=== PATIENT | female | born 1955 | race Caucasian/White ===

== ENCOUNTER 2023-05-15 17:34 | Emergency (ER) | payer SELFPAY ==
[2023-05-15 17:40] VITALS: BP 150/80; PULSE 76; RESP 20; TEMP 36.7; O2SAT 98; BMI 27.4
--- NOTE | 2023-05-15 17:42 | XR_ITS ---
The [address] [address] Patient Name: KAREN ALEMAN MRN: [id number] date: 1955 Sex: F Assigned Patient Location: ED.MAIN Current Patient Location: ER Accession/Order Number: [id number] Exam Date: 05/15/2023 18:18 Report Date: 05/15/2023 18:51 At the request of: DOUG VERMA Procedure: XR shoulder LT min 2V EXAM: XR shoulder LT min 2V HISTORY: pain, fall COMPARISON: None. TECHNIQUE: 3 views of the left shoulder. FINDINGS: Bones: No acute fracture or aggressive appearing bony lesion. Joints: Normal alignment. No effusion. 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 Soft tissues: Unremarkable. XR/XR shoulder LT min 2V IMPRESSION: No evidence of fracture or dislocation. Electronically authenticated by: JAZLYN CHO Date: 05/15/2023 18:51
--- NOTE | 2023-05-15 17:42 | ECG_ITS ---
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
--- NOTE | 2023-05-15 17:42 | CT_ITS ---
The [address] [address] Patient Name: KAREN ALEMAN MRN: [id number] date: 1955 Sex: F Assigned Patient Location: ER Current Patient Location: Accession/Order Number: [id number] Exam Date: 05/15/2023 18:11 Report Date: 05/15/2023 19:05 At the request of: DOUG VERMA Procedure: CT cervical spine wo con EXAM: CT cervical spine wo con COMPARISON: None available. CLINICAL INDICATION: pain, fall TECHNIQUE: Multiplanar CT images of the cervical spine without contrast. Dose reduction techniques were achieved by using automated exposure control and/or adjustment of mA and/or kV according to patient size and/or use of iterative reconstruction technique. FINDINGS: Osteopenia. No CT evidence of acute osseous abnormality of the cervical spine. No prevertebral soft tissue swelling. No significant spondylolisthesis. Moderate degenerative disc disease at C5-C6. Severe facet arthropathy at C3-C4 on the right and C5-C6 on the left. No significant spinal canal stenosis. Right foraminal narrowing at C3-C4. Acute nondisplaced fracture of the left first rib. No significant left pneumothorax seen. Question acute nondisplaced compression fracture of the right upper T1 vertebral body with trace height loss. CT/CT cervical spine wo con IMPRESSION: Acute nondisplaced fracture of the left first rib. No significant left pneumothorax seen. Question acute nondisplaced compression fracture of the right upper T1 vertebral body with trace height loss. No CT evidence of acute osseous abnormality of the cervical spine. Osteopenia. Degenerative changes detailed above. Electronically authenticated by: FERNANDEZ PAYNE Date: 05/15/2023 19:05
--- NOTE | 2023-05-15 17:42 | CT_ITS ---
The [address] [address] Patient Name: KAREN ALEMAN MRN: [id number] date: 1955 Sex: F Assigned Patient Location: ER Current Patient Location: ER Accession/Order Number: [id number] Exam Date: 05/15/2023 18:11 Report Date: 05/15/2023 20:21 At the request of: DOUG VERMA Procedure: CT head/brain wo con CT SCAN OF THE HEAD WITHOUT CONTRAST, 05/15/2023 6:11 PM EDT: COMPARISON: None CLINICAL HISTORY: AMS. Patient fell a couple days ago. TECHNIQUE: 3 mm axial images performed through the head without contrast. 3 mm sagittal and coronal MPR reconstructions performed. Dose reduction techniques were achieved by using automated exposure control and/or adjustment of mA and/or kV according to patient size and/or use of iterative reconstruction technique. FINDINGS: Age-related cerebral and cerebellar atrophy with associated ventricular prominence. Nonspecific periventricular white matter low attenuation, likely a sequela of small vessel disease. No acute hemorrhage, mass effect, or midline shift. Visualized paranasal sinuses, mastoid air cells, and bony structures are unremarkable. CT/CT head/brain wo con IMPRESSION: 1. No acute intracranial abnormality identified. Please note, CT is insensitive to early ischemia and if there is further clinical concern, MRI or CT angiography is recommended. 2. Age-related atrophy with associated ventricular prominence and periventricular white matter small vessel disease. Electronically authenticated by: Jennifer MITCHELL Date: 05/15/2023 20:21
[2023-05-15 18:06] VITALS: PULSE 76; RESP 21
[2023-05-15 18:07] VITALS: PULSE 77; RESP 27; O2SAT 98
[2023-05-15 18:08] LABS: Amphetamine Screen Urine NEGATIVE (NEGATIVE); Barbiturates Screen Urine NEGATIVE (NEGATIVE); Benzodiazepines Screen Urine NEGATIVE (NEGATIVE); Buprenorphine Screen Urine NEGATIVE (NEGATIVE); Cannabinoid Screen Urine NEGATIVE (NEGATIVE); Cocaine Screen Urine NEGATIVE (NEGATIVE); Methadone Screen Urine NEGATIVE (NEGATIVE); Methamphetamines Screen Urine NEGATIVE (NEGATIVE); Opiate Screen Urine NEGATIVE (NEGATIVE); Oxycodone Screen Urine NEGATIVE (NEGATIVE); Phencyclidine Screen Urine NEGATIVE (NEGATIVE); Tricyclic Antidepressant Urine NEGATIVE (NEGATIVE)
[2023-05-15 18:15] LABS: Basophils Absolute Auto 0.1 10^3/uL (0.0-0.1); Basophils Percent Auto 0.3 % (0.2-2.0); Eosinophils Absolute Auto 0.3 10^3/uL (0.0-0.7); Hematocrit 48.6 % (36.0-48.0); Hemoglobin 15.9 g/dL (12.0-16.0); Immature Granulocytes Abs Auto 0.06 10^3/uL (0.00-0.03); Immature Granulocytes Pct Auto 0.4 % (0.0-0.5); Lymphocytes Absolute Auto 5.3 10^3/uL (1.2-3.8); Lymphocytes Percent Auto 35.7 % (20.5-60.0); Mean Corpuscular HGB Conc 32.7 g/dL (29.9-35.2); Mean Corpuscular Hemoglobin 30.9 pg (26.7-34.0); Mean Corpuscular Volume 94.4 fL (81.0-99.0); Mean Platelet Volume 11.4 fL (9.5-13.5); Monocytes Absolute Auto 0.9 10^3/uL (0.3-0.8); Monocytes Percent Auto 6.3 % (1.7-12.0); Neutrophils Absolute Auto 8.3 10^3/uL (1.4-6.5); Neutrophils Percent Auto 55.3 % (43.0-75.0); Platelet Count 307 10^3/uL (150-450); Red Blood Count 5.15 10^6/uL (4.20-5.40); Red Cell Distribution Width 13.9 % (11.0-15.0)
[2023-05-15 18:16] LABS: Anion Gap 14.7; BUN Creatinine Ratio 27.5; Calcium 9.5 mg/dL (8.5-10.1); Carbon Dioxide 29.3 mmol/L (21.0-32.0); Chloride 100 mmol/L (98-107); Estimated GFR (African America >60 (>=60); Estimated GFR (Non-African Ame >60 (>=60); Glucose 176 mg/dL (74-106); Sodium 140 mmol/L (136-145)
[2023-05-15 18:24] LABS: Ethanol <3 mg/dL
--- NOTE | 2023-05-15 18:53 | ED_ITS ---
HPI - Medical Clearance General Chief complaint: Medical Clearance Stated complaint: MEDICAL CLEARANCE Time Seen by Provider: 05/15/23 17:38 Source: patient Mode of arrival: law enforcement Limitations: no limitations History of Present Illness HPI Narrative: 67-year-old female presents to the emergency department for medical clearance for alf. Patient was discharged earlier in the day with trespassing in a bar after she hugged a button decorating machine operator and would let him go. She showed back up to the bar playing loud music and yelling for the button decorating machine operator and was charged with menacing stalking and trespassing. She is brought by PD for medical clearance. Patient reports that she fell 2 days ago and hit her head. She also reports some left shoulder pain from the fall. She is otherwise been her baseline health. Reports she takes no medications. Related Information Home Medications Medication Instructions Recorded Confirmed aripiprazole 5 mg tablet 5 mg PO DAILY 05/15/23 05/15/23 empagliflozin 10 mg tablet 10 mg PO DAILY 05/15/23 05/15/23 (Jardiance) hydroxyzine HCl 25 mg tablet 25 mg PO BID PRN anxiety 05/15/23 05/15/23 lumateperone 42 mg capsule 42 mg PO DAILY 05/15/23 05/15/23 (Caplyta) oxcarbazepine 300 mg tablet 300 mg PO BID 05/15/23 05/15/23 paliperidone 6 mg tablet,extended 6 mg PO Q24H 05/15/23 05/15/23 release 24 hr trazodone 50 mg tablet 50 mg PO BEDTIME 05/15/23 05/15/23 Allergies Allergy/AdvReac Type Severity Reaction Status Date / Time No Known Drug Allergies Allergy Verified 05/15/23 17:39 Review of Systems ROS Status of ROS 10 or more systems reviewed and unremarkable except as noted in history and below Exam Narrative Exam Narrative: VITALS: I have reviewed the triage vital signs. GENERAL: Well developed, well appearing adult female in no acute distress. NEURO: Alert and oriented x4. Moves all extremities. Face is symmetric and expressive. EYES: PERRL. No scleral icterus or conjunctival injection. No discharge. HENT: Normocephalic, atraumatic. Hearing is grossly intact. Nares grossly patent and without discharge. Mucous membranes moist. NECK: No JVD. Patient moves neck without restriction. CARDIO: Rhythm regular. Normal rate. No murmur, rub, or gallop. Pulses equal bilaterally in the upper and lower extremity. No lower extremity edema. PULM: Lungs clear to auscultation in all pool. No wheezes, rales, or rhonchi. No conversational dyspnea. No splinting, stridor, or accessory muscle use. GI/: Abdomen is soft and non-tender. Normoactive bowel sounds. EXTREMITIES: Symmetric muscle bulk. No joint swelling. No clubbing, cyanosis, or deformity. SKIN: Warm and dry. Normal turgor. No rash or lesions appreciated. PSYCH: Bizarre affect. Constitutional Vital Signs, click to edit/add: Last Vital Signs Temp 98.1 F 05/15/23 17:40 Pulse 76 05/15/23 17:40 Resp 20 05/15/23 17:40 BP 150/80 H 05/15/23 17:40 Pulse Ox 98 05/15/23 18:07 O2 Del Method Room Air 05/15/23 18:07 Course Vital Signs Vital signs: Vital Signs Temperature 98.1 F 05/15/23 17:40 Pulse Rate 76 05/15/23 17:40 Respiratory Rate 20 05/15/23 17:40 Blood Pressure 150/80 H 05/15/23 17:40 Pulse Oximetry 98 05/15/23 17:40 Oxygen Delivery Method Room Air 05/15/23 17:40 Temperature 98.1 F 05/15/23 17:40 Pulse Rate 76 05/15/23 17:40 Respiratory Rate 20 05/15/23 17:40 Blood Pressure 150/80 H 05/15/23 17:40 Pulse Oximetry 98 05/15/23 18:07 Oxygen Delivery Method Room Air 05/15/23 18:07 MDM - Medical Clearance MDM Narrative Medical decision making narrative: 67-year-old female to the emergency department for medical clearance. Vital stable, the patient is afebrile. Basic labs ordered. Given her recent fall and bizarre behavior reported today by PD will order CT head, C-spine. Order x-ray left shoulder per her discomfort. Patient agrees with this plan. Lab work reviewed and noted. No major abnormalities. Care was signed out to Dr. Pond with results of CT imaging, urinalysis pending. If these are within normal limits she may be cleared for alf. Medical Records Attestation: I reviewed the patient's medical records. Lab Data Attestation: I reviewed the patient's lab results. Labs: Lab Results 05/15/23 05/15/23 Range/Units 17:50 18:00 WBC 15.0 H (4.0-11.0) 10^3/uL RBC 5.15 (4.20-5.40) 10^6/uL Hgb 15.9 (12.0-16.0) g/dL Hct 48.6 H (36.0-48.0) % MCV 94.4 (81.0-99.0) fL MCH 30.9 (26.7-34.0) pg MCHC 32.7 (29.9-35.2) g/dL RDW 13.9 (11.0-15.0) % Plt Count 307 (150-450) 10^3/uL MPV 11.4 (9.5-13.5) fL Neut % (Auto) 55.3 (43.0-75.0) % Lymph % (Auto) 35.7 (20.5-60.0) % Ritchie % (Auto) 6.3 (1.7-12.0) % Eos % (Auto) 2.0 (0.9-7.0) % Baso % (Auto) 0.3 (0.2-2.0) % Neut # (Auto) 8.3 H (1.4-6.5) 10^3/uL Lymph # (Auto) 5.3 H (1.2-3.8) 10^3/uL Ritchie # (Auto) 0.9 H (0.3-0.8) 10^3/uL Eos # (Auto) 0.3 (0.0-0.7) 10^3/uL Baso # (Auto) 0.1 (0.0-0.1) 10^3/uL Abs Immat Gran (auto) 0.06 H (0.00-0.03) 10^3/uL Imm/Tot Granulo (auto) 0.4 (0.0-0.5) % Sodium 140 (136-145) mmol/L Potassium 4.0 (3.5-5.1) mmol/L Chloride 100 (98-107) mmol/L Carbon Dioxide 29.3 (21.0-32.0) mmol/L Anion Gap 14.7 BUN 22.0 H (7.0-18.0) mg/dL Creatinine 0.80 (0.55-1.02) mg/dL Est GFR ( Amer) >60 (>=60) Est GFR (Non-Af Amer) >60 (>=60) BUN/Creatinine Ratio 27.5 Glucose 176 H (74-106) mg/dL Calcium 9.5 (8.5-10.1) mg/dL Urine Opiates Screen Negative (NEGATIVE) Ur Buprenorphine Scrn Negative (NEGATIVE) Ur Oxycodone Screen Negative (NEGATIVE) Urine Methadone Screen Negative (NEGATIVE) Ur Propoxyphene Screen Negative (NEGATIVE) Ur Barbiturates Screen Negative (NEGATIVE) U Tricyclic Antidepress Negative (NEGATIVE) Ur Phencyclidine Scrn Negative (NEGATIVE) Ur Amphetamines Screen Negative (NEGATIVE) U Methamphetamines Scrn Negative (NEGATIVE) U Benzodiazepines Scrn Negative (NEGATIVE) Urine Cocaine Screen Negative (NEGATIVE) U Cannabinoids Screen Negative (NEGATIVE) Ethanol Quant <3 mg/dL ECG Data Attestation: I personally reviewed and interpreted this ECG as follows: (NSR at 69. Normal QTc. No STEMI. ) Discharge Plan Discharge Chief Complaint: Medical Clearance Clinical Impression: Encounter for medical screening examination, Abnormal behavior Prescriptions / Home Meds: No Action aripiprazole 5 mg tablet 5 mg PO DAILY Jardiance 10 mg tablet 10 mg PO DAILY hydroxyzine HCl 25 mg tablet 25 mg PO BID PRN (Reason: anxiety) Caplyta 42 mg capsule 42 mg PO DAILY oxcarbazepine 300 mg tablet 300 mg PO BID paliperidone 6 mg tablet extended release 24hr 6 mg PO Q24H trazodone 50 mg tablet 50 mg PO BEDTIME Referrals: Physician,Non-Staff, MD [Primary Care Provider] - 1 week
[2023-05-15 19:12] LABS: Bilirubin Urine NEGATIVE (NEGATIVE); Blood Urine NEGATIVE (NEGATIVE); Clarity Urine CLEAR (CLEAR); Color Urine YELLOW (YELLOW); Glucose Urine UA >=1000 mg/dL (NEGATIVE); Ketones Urine TRACE mg/dL (NEGATIVE); Leukocyte Esterase Urine NEGATIVE (NEGATIVE); Nitrite Urine NEGATIVE (NEGATIVE); Protein Urine NEGATIVE (NEG/TRACE); Specific Gravity Urine >=1.030 (1.005-1.025); Urobilinogen Urine 0.2 EU/dL (0.2-1.0)
[2023-05-15 19:13] LABS: Urine Microscopic Indicated NO
--- NOTE | 2023-05-15 19:38 | CT_ITS ---
The [address] [address] Patient Name: KAREN ALEMAN MRN: [id number] date: 1955 Sex: F Assigned Patient Location: ER Current Patient Location: ED.MAIN Accession/Order Number: [id number] Exam Date: 05/15/2023 19:50 Report Date: 05/15/2023 21:24 At the request of: CHIKA CHARLTON Procedure: CT thoracic spine wo con EXAM: CT thoracic spine wo con HISTORY: ? Compression fracture T1 COMPARISON: CT cervical spine 05/15/2023. TECHNIQUE: Unenhanced helical CT was performed of the thoracic spine. Coronal and sagittal reconstructions were performed. FINDINGS: There is minimal loss of height at T1 as noted on cervical spine CT with mild concavity of the superior endplate. This is favored to be chronic in nature. There is mild increased kyphosis of the upper thoracic spine. There is mild multilevel disc space narrowing and anterior osteophytic spurring especially at T3-T4 consistent with degenerative changes. No acute fracture or subluxation. There is no significant spinal canal or neural foraminal stenosis. There is borderline cardiomegaly. The main pulmonary artery is dilated at 3 cm suspicious for pulmonary hypertension. As noted on the cervical spine CT there is an acute nondisplaced fracture of the left first posterior rib. CT/CT thoracic spine wo con IMPRESSION: 1. No definite acute fracture or subluxation. 2. Redemonstration of mild loss of height at T1 with concavity of the superior endplate. This is most likely chronic in nature. 3. Redemonstration of a nondisplaced fracture of the left first posterior rib. 4. Degenerative changes as described above. 5. Mild increased thoracic kyphosis. 6. Borderline cardiomegaly and dilated main pulmonary artery which may be secondary to pulmonary hypertension. Electronically authenticated by: ALL HERBERT Date: 05/15/2023 21:24
[2023-05-15 20:56] VITALS: BP 170/71
== END 2023-05-15 21:32 ==
PROVIDERS: Student in an Organized Health Care Education/Training Program; Emergency Provider Internal Medicine
DX: S22.32XA Fracture of one rib, left side, initial encounter for closed fracture (principal); F99 Mental disorder, not otherwise specified; S22.010A Wedge compression fracture of first thoracic vertebra, initial encounter for closed fracture; W19.XXXA Unspecified fall, initial encounter; Z79.899 Other long term (current) drug therapy
CPT/HCPCS: 36415; 70450; 72125; 72128; 73030; 80048; 80307; 80320; 81003; 85025; 93005; 99285

== ENCOUNTER 2023-11-05 13:34 | Emergency (ER) | payer SELFPAY ==
[2023-11-05] VITALS (13 sets, daily range): BP systolic 130–185; BP diastolic 64–105; PULSE 72–89; RESP 16–41; TEMP 36.6; O2SAT 95; BMI 29.9
--- NOTE | 2023-11-05 13:47 | PC.NURSE ---
pt reports having a cysts in belly button and was instructed to get a US for this but pt reports does not have insurance or insurance will not pay for this so she is unable to get this test done out pt.
--- NOTE | 2023-11-05 13:52 | ECG_ITS ---
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
--- NOTE | 2023-11-05 13:52 | XR_ITS ---
The [address] [address] Patient Name: KAREN ALEMAN MRN: [id number] date: 1955 Sex: F Assigned Patient Location: ER Current Patient Location: ER Accession/Order Number: [id number] Exam Date: 11/05/2023 14:30 Report Date: 11/05/2023 14:41 At the request of: MECHELLE MIGUEL Procedure: XR chest 1V EXAM: XR chest 1V HISTORY: Weakness COMPARISON: None. TECHNIQUE: Chest semiupright portable one view FINDINGS: Small to moderate-sized left effusion with left lower lobe and lingular airspace disease from atelectasis versus pneumonia. Mild left upper lobe atelectasis. Mild atelectasis at the right lung base. There is a calcified right lower lobe granuloma. Pulmonary vasculature within normal limits. Heart size is suboptimally evaluated given opacified left lower chest that appears to be mildly enlarged. XR/XR chest 1V IMPRESSION: 1. Yxgop-ng-mafapuhg size left effusion with left mid to lower lung airspace disease from atelectasis versus pneumonia. No prior comparison studies. Recommend follow-up to resolution. Electronically authenticated by: EARNEST WARE Date: 11/05/2023 14:41
--- NOTE | 2023-11-05 13:52 | CT_ITS ---
The [address] [address] Patient Name: KAREN ALEMAN MRN: [id number] date: 1955 Sex: F Assigned Patient Location: ER Current Patient Location: ER Accession/Order Number: [id number] Exam Date: 11/05/2023 15:15 Report Date: 11/05/2023 16:01 At the request of: MECHELLE MIGUEL Procedure: CT abdomen pelvis w con EXAM: CT abdomen pelvis w con HISTORY: abdominal pain COMPARISON: None TECHNIQUE: CT abdomen and CT pelvis studies were performed with the use of intravenous contrast. Multiple axial images were obtained. Reformatted coronal and sagittal images were obtained and reviewed. FINDINGS: Small right pleural effusion with small to moderate-sized left pleural effusion. Calcified lymph nodes in the right hilar region likely related to granulomatous changes. Calcified granuloma in the right lower lung field. Mild atelectatic, fibrotic or infiltrative changes in the left lower lung field with mild pleural thickening. Views of the liver demonstrate multiple variable sized areas of decreased attenuation there are not felt to be cystic. Diffuse hepatic metastatic disease is suggested. A few of the largest areas measure near 4 cm. Views of the spleen demonstrate a 1.2 cm area of decreased attenuation which is not felt to be simple cystic in nature, metastatic lesion is considered. Gallbladder appears grossly unremarkable. Ovlb-qh-plkndnow atrophy of the pancreas without focal mass or ductal dilatation. Adrenal glands appear grossly unremarkable. Stomach appears grossly unremarkable. Bowel loops appear grossly unremarkable. Atherosclerotic calcifications within portions of the thoracic aorta. No evidence of aneurysm. Npch-kq-zmkbqlgg retroperitoneal adenopathy in the periaortic and pericaval regions which may be malignant. Mildly enlarged left pericardial fat pad lymph node which may be malignant. Densities within the omental region anteriorly suspect for omental metastatic disease/peritoneal seeding. No obvious renal mass or evidence of obstructive uropathy. Large amount of free intraperitoneal fluid in the abdomen which may represent malignant ascites. Somewhat thickened appearance of the diaphragm bilaterally may be artifactually created, one involving difficult to exclude entirely. Pelvis: Moderate to large amount of free intraperitoneal fluid which may be malignant. Bladder appears grossly unremarkable. There may be ill-defined endometrial prominence of the uterus, uterine neoplasm is not excluded. Artifact versus mild prominence of the cervical region. Neoplasm not excluded. Small 1.2 cm decreased attenuation left adnexal region most likely representing cyst, unusual in a patient of this age though other possibility would be less likely. Given the above findings, follow-up ultrasound study of pelvis with transabdominal and transvaginal imaging may be considered for further evaluation. Perirectal fat planes appear grossly intact. Bowel loops appear grossly unremarkable. Atherosclerotic calcifications within portions of the iliofemoral arteries. No evidence of aneurysm. Omental metastatic seeding suggested at the orifice of a small umbilical hernia, no evidence of associated bowel content. Mild bilateral iliofemoral adenopathy which may well be malignant. Moderate degenerative changes in the lumbar spine with mild degenerative changes in the dorsal spine. Mild generalized subcutaneous edema. CT/CT abdomen pelvis w con IMPRESSION: CT abdomen and CT pelvis studies demonstrate findings compatible with diffuse hepatic metastatic disease. Likely metastatic lesion in the spleen. Moderate to marked free intraperitoneal fluid in the abdomen and pelvis. Malignant adenopathy is considered Findings compatible with omental/peritoneal neoplastic involvement as described. Adenopathy which may be malignant as noted. Artifact versus possible malignant involvement of the diaphragm. Questionable mild ill-defined prominence of the endometrial region of the uterus. Likely small cyst in the left adnexal region unusual in a patient of this age no other possibility would be less likely. Possible endometrial prominence. Given these findings, follow-up ultrasound study of pelvis with transabdominal and transvaginal imaging may be considered for further evaluation. Electronically authenticated by: REAL MARTINI Date: 11/05/2023 16:01
--- NOTE | 2023-11-05 13:54 | ED.GENADUL1 ---
HPI - General Adult General Chief complaint: Nausea/Vomiting/Diarrhea Stated complaint: ABD PAIN Time Seen by Provider: 11/05/23 13:47 Source: patient Mode of arrival: ambulance Limitations: no limitations History of Present Illness HPI narrative: Patient is a 68-year-old female brought in by ambulance for the evaluation of nausea and diarrhea for the last several months. Patient is a very poor historian. She states that she came to the ER today because she continues to have diarrhea and abdominal distention. Patient apparently has seen her provider for this in [place] at [facility], she states that she was due to have imaging done of her abdomen but does not have insurance.Patient denies fevers, vomiting. She denies any pain in the abdomen. She has had no urinary symptoms. No medications taken prior to arrival today. Related Data Home Medications Medication Instructions Recorded Confirmed aripiprazole 5 mg tablet 5 mg PO DAILY 05/15/23 05/15/23 empagliflozin 10 mg tablet 10 mg PO DAILY 05/15/23 05/15/23 (Jardiance) hydroxyzine HCl 25 mg tablet 25 mg PO BID PRN anxiety 05/15/23 05/15/23 lumateperone 42 mg capsule 42 mg PO DAILY 05/15/23 05/15/23 (Caplyta) oxcarbazepine 300 mg tablet 300 mg PO BID 05/15/23 05/15/23 paliperidone 6 mg tablet,extended 6 mg PO Q24H 05/15/23 05/15/23 release 24 hr trazodone 50 mg tablet 50 mg PO BEDTIME 05/15/23 05/15/23 Previous Rx's Medication Instructions Recorded hyoscyamine sulfate 0.125 mg 0.125 mg PO Q6H PRN abdominal pain 11/05/23 tablet (Levsin) #12 tabs ondansetron 4 mg disintegrating 4 mg PO Q6H PRN nausea and 11/05/23 tablet vomiting #12 tabs Allergies Allergy/AdvReac Type Severity Reaction Status Date / Time No Known Drug Allergies Allergy Verified 05/15/23 17:39 Review of Systems ROS Constitutional Denies: fever or chills Ears, nose, mouth, and throat Denies: throat pain or nasal congestion Cardiovascular Denies: chest pain Respiratory Denies: shortness of breath or cough Gastrointestinal Reports: nausea and diarrhea; Denies: abdominal pain or vomiting Genitourinary Denies: painful urination Musculoskeletal Reports: back pain; Denies: neck pain Integumentary/Breast Denies: rash Neurological Denies: headache Hematologic/Lymphatic Denies: easy bruising [facility] Social History Smoking status: Light tobacco smoker Exam Narrative Exam Narrative: Gen.: Awake, alert, in no distress, Patient lying on her side in no distress Head: Normocephalic, atraumatic ENT: Moist mucous membranes Respiratory: No respiratory distress, lungs clear bilaterally Cardio: Regular rate and rhythm Gastrointestinal: Abdomen is soft, Distended with palpable lump at the umbilicus. No erythema or induration of the abdominal wall. Nontender to palpation. Extremities: Moves extremities equally, no injuries noted Psych: Normal mood and affect Neuro: No focal neuro deficit Skin: Warm, dry, intact Constitutional Vital Signs, click to edit/add: Last Vital Signs Temp 97.8 F 11/05/23 13:36 Pulse 75 11/05/23 15:40 Resp 16 11/05/23 15:40 BP 130/64 11/05/23 15:37 Pulse Ox 95 11/05/23 13:36 O2 Del Method Room Air 11/05/23 13:46 Course Vital Signs Vital signs: Vital Signs Temperature 97.8 F 11/05/23 13:36 Pulse Rate 82 11/05/23 13:36 Respiratory Rate 24 11/05/23 13:36 Blood Pressure 185/105 H 11/05/23 13:36 Pulse Oximetry 95 11/05/23 13:36 Oxygen Delivery Method Room Air 11/05/23 13:36 Temperature 97.8 F 11/05/23 13:36 Pulse Rate 75 11/05/23 15:40 Respiratory Rate 16 11/05/23 15:40 Blood Pressure 130/64 11/05/23 15:37 Pulse Oximetry 95 11/05/23 13:36 Oxygen Delivery Method Room Air 11/05/23 13:46 Medical Decision Making [facility] Narrative Medical decision making narrative: Patient was medicated with Zofran, Levsin, IV fluids. Lab studies show leukocytosis, chest x-ray with pleural effusion, patient has no cough, congestion, fevers. Blood cultures were ordered based on sepsis protocol. Lactic acid is mildly elevated. Patient with globally elevated LFTs. CT of the abdomen and pelvis shows metastatic disease throughout the abdomen. I discussed the case with on-call oncologist, Dr. Emanuel Who is in agreement with evaluating the patient as a consult, either tomorrow at 3:45 PM or as an inpatient if the patient is unable to be discharged home. She has stable vital signs in the ER, had no episodes of emesis in the ER and is continuously asking for something to eat. I discussed the results with the patient's daughter Kinga over the phone and she has no preference, she states that the patient would like to be discharged home and follow-up tomorrow, she is okay with that. Patient's results were discussed with her by Dr. Myers at the bedside. Patient prefers to be discharged home. She can return to the emergency department at any time if symptoms change or worsen. Medical Records Medical records reviewed: Yes I reviewed the patient's medical records Lab Data Lab results reviewed: Yes I reviewed the patient's lab results Labs: Lab Results 11/05/23 Range/Units 14:28 WBC 18.4 H (4.0-11.0) 10^3/uL RBC 5.35 (4.20-5.40) 10^6/uL Hgb 16.7 H (12.0-16.0) g/dL Hct 51.9 H (36.0-48.0) % MCV 97.0 (81.0-99.0) fL MCH 31.2 (26.7-34.0) pg MCHC 32.2 (29.9-35.2) g/dL RDW 15.9 H (11.0-15.0) % Plt Count 321 (150-450) 10^3/uL MPV 11.3 (9.5-13.5) fL Neut % (Auto) 74.2 (43.0-75.0) % Lymph % (Auto) 13.8 L (20.5-60.0) % Forest % (Auto) 6.6 (1.7-12.0) % Eos % (Auto) 4.4 (0.9-7.0) % Baso % (Auto) 0.5 (0.2-2.0) % Neut # (Auto) 13.6 H (1.4-6.5) 10^3/uL Lymph # (Auto) 2.6 (1.2-3.8) 10^3/uL Forest # (Auto) 1.2 H (0.3-0.8) 10^3/uL Eos # (Auto) 0.8 H (0.0-0.7) 10^3/uL Baso # (Auto) 0.1 (0.0-0.1) 10^3/uL Abs Immat Gran (auto) 0.10 H (0.00-0.03) 10^3/uL Imm/Tot Granulo (auto) 0.5 (0.0-0.5) % Sodium 137 (136-145) mmol/L Potassium 4.2 (3.5-5.1) mmol/L Chloride 98 (98-107) mmol/L Carbon Dioxide 32.0 (21.0-32.0) mmol/L Anion Gap 11.2 BUN 14.0 (7.0-18.0) mg/dL Creatinine 0.73 (0.55-1.02) mg/dL Est GFR ( Amer) >60 (>=60) Est GFR (Non-Af Amer) >60 (>=60) BUN/Creatinine Ratio 19.2 Glucose 190 H (74-106) mg/dL Lactate 2.2 H* (0.4-2.0) mmol/L Calcium 9.5 (8.5-10.1) mg/dL Total Bilirubin 2.9 H (0.2-1.0) mg/dL AST 110 H (15-37) U/L ALT 44 (14-59) U/L Alkaline Phosphatase 2049 H (46-116) U/L Troponin I High Sens 8.4 (4.0-51.3) pg/mL Total Protein 8.5 H (6.4-8.2) g/dL Albumin 3.1 L (3.4-5.0) g/dL Globulin 5.4 g/dL Albumin/Globulin Ratio 0.6 Lipase 21.0 (16.0-77.0) U/L Imaging Data Chest x-ray: Radiologist's impression: ITS Impressions Abdomen/Pelvis CT 11/05/23 13:52 IMPRESSION: CT abdomen and CT pelvis studies demonstrate findings compatible with diffuse hepatic metastatic disease. Likely metastatic lesion in the spleen. Moderate to marked free intraperitoneal fluid in the abdomen and pelvis. Malignant adenopathy is considered Findings compatible with omental/peritoneal neoplastic involvement as described. Adenopathy which may be malignant as noted. Artifact versus possible malignant involvement of the diaphragm. Questionable mild ill-defined prominence of the endometrial region of the uterus. Likely small cyst in the left adnexal region unusual in a patient of this age no other possibility would be less likely. Possible endometrial prominence. Given these findings, follow-up ultrasound study of pelvis with transabdominal and transvaginal imaging may be considered for further evaluation. Electronically authenticated by: REAL MARTINI Date: 11/05/2023 16:01 Chest X-Ray 11/05/23 13:52 IMPRESSION: 1. [id number] size left effusion with left mid to lower lung airspace disease from atelectasis versus pneumonia. No prior comparison studies. Recommend follow-up to resolution. Electronically authenticated by: EARNEST WARE Date: 11/05/2023 14:41 ECG Data Attestation: I personally reviewed and interpreted this ECG as follows: (Normal sinus rhythm at a rate of 82 with occasional PVCs, no acute ST elevation or ectopy. EKG reviewed by attending physician.) Discharge Plan Discharge Chief Complaint: Nausea/Vomiting/Diarrhea Clinical Impression: Diarrhea, Metastatic cancer Patient Disposition: Home, Self-Care Time of Disposition Decision: 16:32 Condition: Good Prescriptions / Home Meds: New hyoscyamine sulfate [Levsin] 0.125 mg tablet 0.125 mg PO Q6H PRN (Reason: abdominal pain) Qty: 12 0RF ondansetron 4 mg tablet,disintegrating 4 mg PO Q6H PRN (Reason: nausea and vomiting) Qty: 12 0RF No Action aripiprazole 5 mg tablet 5 mg PO DAILY Jardiance 10 mg tablet 10 mg PO DAILY hydroxyzine HCl 25 mg tablet 25 mg PO BID PRN (Reason: anxiety) Caplyta 42 mg capsule 42 mg PO DAILY oxcarbazepine 300 mg tablet 300 mg PO BID paliperidone 6 mg tablet extended release 24hr 6 mg PO Q24H trazodone 50 mg tablet 50 mg PO BEDTIME Instructions: Acute Diarrhea (ED) Additional Instructions: Follow up tomorrow with Dr. Emanuel's office at 3:45pm Stand Alone Forms: Portal Instructions Referrals: Marleny Emanuel MD [Physician] - 11/06/23 3:45 pm Physician,Non-Staff, [Primary Care Provider] - 1 week
[2023-11-05] MEDS: HYOSCYAMINE SULFATE 0.125 MG TAB.SUBL SL (14:23)
[2023-11-05] MEDS: 0.9 % SODIUM CHLORIDE 1,000 ML 100 ML IV (14:24)
[2023-11-05] MEDS: ONDANSETRON PF 4 MG/2 ML VIAL IV (14:24)
[2023-11-05 14:40] LABS: Basophils Absolute Auto 0.1 10^3/uL (0.0-0.1); Basophils Percent Auto 0.5 % (0.2-2.0); Eosinophils Absolute Auto 0.8 10^3/uL (0.0-0.7); Eosinophils Percent Auto 4.4 % (0.9-7.0); Hematocrit 51.9 % (36.0-48.0); Hemoglobin 16.7 g/dL (12.0-16.0); Immature Granulocytes Pct Auto 0.5 % (0.0-0.5); Lymphocytes Absolute Auto 2.6 10^3/uL (1.2-3.8); Lymphocytes Percent Auto 13.8 % (20.5-60.0); Mean Corpuscular HGB Conc 32.2 g/dL (29.9-35.2); Mean Corpuscular Hemoglobin 31.2 pg (26.7-34.0); Mean Platelet Volume 11.3 fL (9.5-13.5); Monocytes Absolute Auto 1.2 10^3/uL (0.3-0.8); Monocytes Percent Auto 6.6 % (1.7-12.0); Neutrophils Absolute Auto 13.6 10^3/uL (1.4-6.5); Neutrophils Percent Auto 74.2 % (43.0-75.0); Platelet Count 321 10^3/uL (150-450); Red Blood Count 5.35 10^6/uL (4.20-5.40); Red Cell Distribution Width 15.9 % (11.0-15.0); White Blood Count 18.4 10^3/uL (4.0-11.0)
[2023-11-05 15:07] LABS: Alanine Aminotransferase 44 U/L (14-59); Albumin Globulin Ratio 0.6; Albumin Level 3.1 g/dL (3.4-5.0); Alkaline Phosphatase 2049 U/L (46-116); Anion Gap 11.2; Aspartate Amino Transferase 110 U/L (15-37); BUN Creatinine Ratio 19.2; Bilirubin Total 2.9 mg/dL (0.2-1.0); Calcium 9.5 mg/dL (8.5-10.1); Chloride 98 mmol/L (98-107); Estimated GFR (African America >60 (>=60); Estimated GFR (Non-African Ame >60 (>=60); Globulin 5.4 g/dL; Glucose 190 mg/dL (74-106); Potassium 4.2 mmol/L (3.5-5.1); Sodium 137 mmol/L (136-145); Total Protein 8.5 g/dL (6.4-8.2); Troponin I High Sensitivity 8.4 pg/mL (4.0-51.3)
[2023-11-05 15:09] LABS: Lactate/Lactic Acid 2.2 mmol/L (0.4-2.0)
[2023-11-05] MEDS: LORAZEPAM 2 MG/ML 1 ML VIAL 0.5 MG IV (16:00)
== END 2023-11-05 17:09 | disposition home or self-care (01) ==
PROVIDERS: Physician Assistant; Emergency Provider Emergency Medicine
DX: R19.7 Diarrhea, unspecified (principal); C79.9 Secondary malignant neoplasm of unspecified site; Z79.899 Other long term (current) drug therapy; F17.210 Nicotine dependence, cigarettes, uncomplicated
CPT/HCPCS: 36415; 71045; 74177; 80053; 83605; 83690; 84484; 85025; 87040; 93005; 96361; 96374; 96375; 99285; J2060; J2405; Q9967

== ENCOUNTER 2023-11-06 15:30 | Outpatient (RCR) | payer SELFPAY | END 2023-11-06 17:00 | disposition home or self-care (01) | LOC: INF 15:30 | PROVIDERS: Visit Provider Internal Medicine Hematology & Oncology | DX: C80.1 Malignant (primary) neoplasm, unspecified (principal); C78.7 Secondary malignant neoplasm of liver and intrahepatic bile duct; E11.9 Type 2 diabetes mellitus without complications; I10 Essential (primary) hypertension; F32.A Depression, unspecified; F17.210 Nicotine dependence, cigarettes, uncomplicated | CPT/HCPCS: G0463 ==